=== PATIENT | female | born 1955 | race Caucasian/White ===

== ENCOUNTER 2022-08-28 15:15 | Outpatient (RCR) | payer OTHER, SELFPAY ==
--- NOTE | 2022-06-12 16:55 | PT.OPEX ---
PT [facility] [facility] Eval PT [facility] Out[facility] Eval Start: 06/12/22 15:54 Freq: Status: Active Protocol: Document 06/12/22 15:55 BECKA (Rec: 06/12/22 15:56 BECKA [id number]) E-Signed By Ramon Guevara DPT, MS Physical Therapy Outpatient Evaluation Insurance Information Recert Due Date 09/10/22 Insurance Name [employer] Medical Diagnosis Right proximal humerus fracture Treating Diagnosis R shoulder pain, decreased R shoulder PROM and AROM, and R UE weakness Subjective Subjective Pt presents to PT following R proximal humerus fracture at work on 04/24/22. Injury occurred when she tripped while walking around a coworker in a busy area, landing with an outstretched arm. Fx was minimally displaced in the surgical head , not requiring surgery. Pain levels improving with stiffness and weakness being chief complaints. Lives alone with daughter currently providing rides. Denies previous L shoulder injuries. PMH includes HTN. AGGR factors: R shoulder AROM, sleeping, driving, lifting, reaching behind and upward. ALLEV factors: rest, ice, ibuprofen. Pt motivated to return to work and performing all daily activities. PT will be under pt?s insurance due to denial from work comp. 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 R shoulder AROM: flex 60 deg, ABD 50 deg. Decreased R shoulder passive and active ROM in all directions with pt responding very well to passive ROM, isometric and elbow AROM exercises today. She will benefit greatly from continued skilled therapy to address these limitations. Primary Functional Limitations R shoulder AROM, sleeping, driving, lifting, reaching behind and upward. Plan of Care Rehabilitation Potential Excellent Physical Therapy Goals Short-term goals to be completed in 4 weeks: 1. Pt will display improved R shoulder flex and ABD passive ROM >155 deg with <2/10 pain to don/doff overhead shirts. 2. Pt will report improved quality of sleep waking <2x per night due to R shoulder pain for >3 consecutive nights Long-term goals to be completed in 10 weeks: 1. Pt will be independent and compliant with HEP 2. Pt will display >25% improvement in R shoulder functional IR to don/doff bras 3. Pt will display improved R shoulder flex, ABD, and mid and low trap strength >4/5 to lift dishes into overhead cabinets. 4. Pt will report >75% improvement in Quick DASH questionnaire to significantly improve tolerance to functional activities. Coordination/Communication With Referral Source Treatment Plan/Direct Interventions Joint Mobilization,Manual Therapy,Self-Care/Home Management,Therapeutic Exercises Frequency/Duration 1x per week for at least 8-12 visits, decreasing to visit frequency, as able. Patient Will Be Discharged From Therapy Completion of LTG(s),Skills Plateau,Independent w/HEP, Independently Progressing Evaluation Billing Untimed Code Treatment Minutes 25 Complexity Moderate Certification Information Initial Certification Date 06/12/22 Ending Certification Date 09/10/22
--- NOTE | 2022-06-14 11:05 | PT.OPDNX ---
PT [place] Outpatient Daily Note PT [facility] Outpatient Daily Note Start: 06/12/22 15:54 Freq: Status: Active Protocol: Document 06/12/22 15:56 BECKA (Rec: 06/12/22 15:57 BECKA [id number]) E-Signed By Ramon Guevara DPT, MS PT OP Daily Progress Note Visit Information Note Type Daily Note Visit Number 1 Insurance Authorized Visits - Physician Authorized Visits Open order Insurance Information Recert Due Date 09/10/22 Insurance Name [employer] Medical Diagnosis Right proximal humerus fracture Treating Diagnosis R shoulder pain, decreased R shoulder PROM and AROM, and R UE weakness Subjective Subjective Pt presents to PT following R proximal humerus fracture at work on 04/24/22. Injury occurred when she tripped while walking around a coworker in a busy area, landing with an outstretched arm. Fx was minimally displaced in the surgical head , not requiring surgery. Pain levels improving with stiffness and weakness being chief complaints. Lives alone with daughter currently providing rides. Denies previous L shoulder injuries. PMH includes HTN. AGGR factors: R shoulder AROM, sleeping, driving, lifting, reaching behind and upward. ALLEV factors: rest, ice, ibuprofen. Pt motivated to return to work and performing all daily activities. PT will be under pt?s insurance due to denial from work comp. Pain Comments 0-5/10 Precautions Treatment Precautions/Contraindications 1# lifting restriction Objective Other/Pertinent Objective Shoulder passive ROM Flexion: L 175 deg, R 75 deg ABD: L 170 deg, R 60 deg IR : L 65 deg, R 45 deg ER : L 90 deg, R 35 deg Shoulder AROM Flexion: L 175 deg, R 60 deg ABD: L 170 deg, R 50 deg IR : L 65 deg, R 45 deg ER : L 90 deg, R 35 deg Strength Biceps: L 5/5, left 3+/5 Palpation: hypertonicity R biceps, UT and deltoid Posture: R shoulder rounding in sitting and standing Swelling: none observed or palpated Sensation: light touch intact bilat UE Other: Functional Test Performed & Score Quick DASH: 10 Patient Instructed in Risks/Benefits Yes Therapeutic Exercise Therapeutic Exercise Minutes (minutes) 22 Therapeutic Exercise: To Restore To restore functional R Functional Status shoulder ROM and R UE strength . Scap retractions Levator scap stretch Table slide flex passive ROM cueing to perform into a gentle stretch, not pain. Shoulder flex, ABD, ER, IR and ext isometrics 3 sec x 5 each R shoulder flex, ABD, ER and IR passive ROM Biceps curls AROM with fatigue 5 reps Treatment Minutes Untimed Code Treatment Minutes 25 Timed Code Treatment Minutes 22 Total Treatment Time 47 Billing Units Therapeutic Exercise Units 1 Assessment/Impression Assessment/Impression Pt is doing well overall with well managed pain levels and precaution compliance 7 weeks post L proximal humeral fx. R shoulder AROM: flex 60 deg, ABD 50 deg. Decreased R shoulder passive and active ROM in all directions with pt responding very well to passive ROM, isometric and elbow AROM exercises today. She will benefit greatly from continued skilled therapy to address these limitations. Plan of Care Physical Therapy Goals Short-term goals to be completed in 4 weeks: 1. Pt will display improved R shoulder flex and ABD passive ROM >155 deg with <2/10 pain to don/doff overhead shirts. 2. Pt will report improved quality of sleep waking <2x per night due to R shoulder pain for >3 consecutive nights Long-term goals to be completed in 10 weeks: 1. Pt will be independent and compliant with HEP 2. Pt will display >25% improvement in R shoulder functional IR to don/doff bras 3. Pt will display improved R shoulder flex, ABD, and mid and low trap strength >4/5 to lift dishes into overhead cabinets. 4. Pt will report >75% improvement in Quick DASH questionnaire to significantly improve tolerance to functional activities. Daily Plan of Care Continue per POC Daily Plan of Care Comments Progress R shoulder passive, AAROM and AROM, beginning strengthening, as able. Trial pulleys, as able. Recertification Information Clinical Certification # #[id number] Patient's H.I.C.N.# # I Certify That I Have Established All Therapy Services/Plan Physician Signature Shows Agreement Dates & Medical Necessity Physician Comment/Change Comment or Changes Physician Signature & Date Please Sign/Date Here Physician NPI Number #
== END 2023-04-02 16:18 | disposition home or self-care (01) ==
PROVIDERS: PCP Family Medicine; Visit Provider Orthopaedic Surgery Sports Medicine
DX: S42.201A Unspecified fracture of upper end of right humerus, initial encounter for closed fracture (principal); M25.511 Pain in right shoulder; Z51.89 Encounter for other specified aftercare
CPT/HCPCS: 97110; 97162